=== PATIENT | female | born 1995 | race African-American/Black ===

== ENCOUNTER 2017-10-26 14:54 | Inpatient (IN) | payer MEDICAID ==
[2017-10-26] VITALS (19 sets, daily range): BP systolic 117–154; BP diastolic 51–87; PULSE 70–100; RESP 17–18; TEMP 98–98.2; O2SAT 99
[~2017-10-26 14:54] MED LIST: MACR100C2 PO; PREN29TA PO
[2017-10-26] MEDS ORDERED: LACTATED RINGER'S 1000 ML INJ 1,000 ML IV PRN (15:31)
[2017-10-26] MEDS ORDERED: LACTATED RINGER'S 1000 ML INJ 1,000 ML IV SCH (15:31)
[2017-10-26 15:36] LABS: BASOPHIL % 0.2 % (0.0-2.0); EOSINOPHIL # 0.1 TH/MM3 (0-0.4); EOSINOPHIL % 0.3 % (0.0-4.0); HEMATOCRIT 31.1 % (35.0-46.0); HEMOGLOBIN 9.5 GM/DL (11.6-15.3); LYMPH % 12.3 % (9.0-44.0); LYMPHOCYTE # 2.3 TH/MM3 (1.0-4.8); MEAN CELL VOLUME 61.2 FL (80.0-100.0); MEAN CORPUSCULAR HEMOGLOBIN 18.7 PG (27.0-34.0); MEAN CORPUSCULAR HGB CONC 30.5 % (32.0-36.0); MEAN PLATELET VOLUME 8.1 FL (7.0-11.0); MONO % 6.9 % (0.0-8.0); MONOCYTE # 1.3 TH/MM3 (0-0.9); NEUT % 80.3 % (16.0-70.0); PLATELET COUNT 255 TH/MM3 (150-450); RED BLOOD COUNT 5.08 MIL/MM3 (4.00-5.30); RED CELL DISTRIBUTION WIDTH 18.3 % (11.6-17.2); WHITE BLOOD COUNT 18.7 TH/MM3 (4.0-11.0)
[2017-10-26] MEDS ORDERED: LIDOCAINE HCL 1% 50 ML VIAL I-DERMAL PRN (15:45)
[2017-10-26] MEDS ORDERED: CITRIC ACID-SODIUM CITRATE LIQ 30 ML UDC PO SCH (15:45)
[2017-10-26] MEDS ORDERED: MINERAL OIL 10 ML VIAL TOPICAL PRN (15:45)
[2017-10-26] MEDS ORDERED: OXYTOCIN 30 UNITS-500ML PREMIX 500 ML IV ONE (15:45)
[2017-10-26] MEDS ORDERED: SODIUM CHLORID 0.9% 500 ML INJ 500 ML IV PRN (15:45)
[2017-10-26] MEDS ORDERED: LIDOCAINE HCL 1% 50 ML VIAL INFIL PRN (15:45)
[2017-10-26 15:49] LABS: AMORPHOUS SEDIMENT, URINE RARE; BACTERIA, URINE OCC /hpf; BILIRUBIN, URINE NEG (NEG); BLOOD, URINE MOD (NEG); GLUCOSE,URINE NEG (NEG); KETONE, URINE NEG (NEG); MUCUS URINE FEW /lpf (OCC); NITRITE,URINE NEG (NEG); PH, URINE 7.5 (5.0-8.5); SQUAMOUS EPITHELIAL CELL URINE 7 /hpf (0-5); URINE COLOR YELLOW (YELLW/STRAW); URINE LEUKOCYTE ESTERASE SMALL (NEG)
[2017-10-26] MEDS ORDERED: SODIUM CHLOR 0.9% 1000 ML INJ 1,000 ML IV PRN (15:51)
[2017-10-26] MEDS ORDERED: LACTATED RINGER'S 1000 ML INJ 1,000 ML IV ONE (15:56)
[2017-10-26] MEDS ORDERED: ACETAMINOPHEN 1000 MG/100 ML 0 ML IV ONE (15:57)
[2017-10-26] MEDS ORDERED: MORPHINE SULFATE PF 5 MG/10 ML VIAL ONE (15:57)
[2017-10-26] MEDS ORDERED: MEASLES, MUMPS, RUBELLA VACCINE 0.5 ML VIAL SQ ONE (16:00)
[2017-10-26] MEDS ORDERED: DIPHTH/TETANUS/ACEL PERTUSSIS (BOOSTER) 0.5 ML VIAL/PFS IM ONE (16:00)
[2017-10-26] MEDS ORDERED: OXYTOCIN 30 UNITS-500ML PREMIX 500 ML ONE (16:05)
[2017-10-26] MEDS: LACTATED RINGER'S 1000 ML INJ 1,000 ML IV SCH ×2 (16:26→21:32)
[2017-10-26] MEDS ORDERED: BENZOCAINE 20% TOPICAL SPRAY 60 ML CAN TOPICAL PRN (16:30)
[2017-10-26] MEDS ORDERED: ALUMINUM/MAGNESIUM/SIMETH 30 ML CUP PO PRN (16:30)
[2017-10-26] MEDS ORDERED: ONDANSETRON ODT 4 MG TAB PO PRN (16:30)
[2017-10-26] MEDS ORDERED: ACETAMINOPHEN 325 MG TAB PO PRN (16:30)
[2017-10-26] MEDS ORDERED: SODIUM CHLORIDE 0.9% FLUSH 10 ML FLUSH IV FLUSH PRN (16:30)
[2017-10-26] MEDS ORDERED: ZOLPIDEM TARTRATE 5 MG TAB PO PRN (16:30)
[2017-10-26] MEDS ORDERED: DOCUSATE SODIUM 50 MG/SENNA 8.6 MG TAB PO PRN (16:30)
[2017-10-26] MEDS ORDERED: WITCH HAZEL 50%/GLYCERIN 12.5% 40 PAD JAR TOPICAL PRN (16:30)
[2017-10-26] MEDS ORDERED: OXYTOCIN 30 UNITS-500ML PREMIX 500 ML IV SCH (16:30)
--- NOTE | 2017-10-26 16:30 | PD.OB.DELI ---
Weeks gestation: 40 Gest age assessed date: Oct 26, 2017 Gest age assessed time: 15:30 Pt started active labor?: Yes Active labor start date: Oct 26, 2017 Active labor start time: 10:00 Artificial rupture of membrane: No Artificial ROM date: Oct 26, 2017 Anesthesia: None Episiotomy: None Vaginal Delivery: Normal, Spontaneous Presentation: Occiput anterior Nuchal Cord: x1 (tight nuchal) Delayed cord clamping (45 sec): No Infant: Male Delivery date: Oct 26, 2017 Delivery time: 16:04 One Minute : 8 Five Minute : 9 Weight: 7 pounds 2 oz Placenta: Spontaneous delivery Laceration: No lacerations Estimated blood loss: 150cc Additional Information Patient presented to OB ED and noted to be jose with variable decellerations. Patient had NO prior care. dating was based on sure LMP of 01-18-2017, consistent with abdominal exam. She was moved to labor room and examined. Cervix was noted to be almost 9cm and appeared to have previously ruptured. Forebag was ruptured and IUPC inserted and amnioinfusion started. On my exam she was 8cm dilated and FSE applied. Persistent variable decellerations continued and decision was made to proceed to c section. In OR patient was positioned for spinal but complained of vaginal pressure. She was placed in dorsal lithotomy and on exam,was fully dilated with head on the perineum. We proceeded to spontaneous vaginal delivery. Tight nuchal cord and and slipped, with tear in cord. Cord clamped, and placenta delivered spontaneously. Perineum intact. EBL 150cc. Cecil Jennings MD Oct 26, 2017 16:30
--- NOTE | 2017-10-26 16:37 | HHI.HP ---
HPI Travel History International Travel<30 Days: No Contact w/Intl Traveler<30Days: No History of Present Illness HPI Ms. Ontiveros is a 21 year old who presents with labor. Patient states that she began having strong abdominal contractions this morning ; she felt that she was "dilating" last night but decided to seek care today due to strength of contractions. Patient does not report any other symptoms at this time such as headache, visual changes, shortness of breath, chest pain, abdominal pain, or dysuria. Patient does not report taking any medications, having any allergies, or having any past medical problems. Patient states that she did not obtain any care this or any ultrasounds. Patient states that her last 2 gestations were delivered vaginally at full-term 1 and 2 years ago. Patient does not report any tobacco use, alcohol use, or illicit drug use. Para: 2 : 3 History Past Medical History Medical History: Denies Significant Hx Obstetric History Obstetric History 002 Past Surgical History Surgical History: No Previous Surgery Family History Narrative Family History None reported Social History Alcohol Use: No Tobacco Use: No Substance Abuse: No Allergies-Medications (Allergen,Severity, Reaction): Coded Allergies: No Known Allergies (Unverified Allergy, Unknown, 10/26/17) Home Meds Active Scripts Vit-Iron Carbonyl ( Plus Iron 29-1 mg) 1 Tab Tab, 1 TAB PO DAILY for Nutritional Supplement, #30 TAB 0 Refills Prov:Carrie Batista 09/17/16 Nitrofurantoin Monohydrate Macrocrystals (Macrobid) 100 Mg Cap, 100 MG PO BID for Infection for 7 Days, CAP 0 Refills Prov:Carrie Batista 09/17/16 Review of Systems General / Constitutional: No: Fever, Chills Eyes: No: Diploplia, Blurred Vision HENT: No: Headaches Cardiovascular: No: Chest Pain or Discomfort Respiratory: No: Short of Breath Gastrointestinal: No: Nausea, Vomiting, Abdominal Pain Genitourinary: No: Urgency, Frequency Skin: No Rash, No Itching Physical Exam Vital Signs Date Time Temp Pulse Resp B/P (MAP) Pulse Ox O2 Delivery O2 Flow Rate FiO2 10/26/17 15:48 85 123/51 (75) 10/26/17 15:30 97 1/12/18 15:22 90 145/78 (100) Narrative GENERAL: in distress; labor SKIN: Warm and dry. HEAD: Normocephalic and atraumatic. EYES: No scleral icterus. No injection or drainage. ENT: No nasal drainage noted. Mucous membranes pink. Airway patent. CARDIOVASCULAR: Regular rate and rhythm without murmurs; normal perfusion RESPIRATORY: CTAB; normal rate ABDOMEN/GI: Gravid; seems near full term EXTREMITIES: No cyanosis or edema. NEUROLOGICAL: Awake and alert. Motor and sensory grossly within normal limits. Five out of 5 muscle strength in all muscle groups. Normal speech. GENITOURINARY: External Genitalia: intact and normal in appearance Cervix: Dilatation: 8 cm Effacement: 80% Station: 0 Presentation: vertex Membranes: Forebag present; prior rupture? Uterine Contractions: q3 min FHT's: Category: 2 Baseline: 110 Reactive: Y Variability: Mod Decels: Deep variable Caprini VTE Risk Assessment Caprini VTE Risk Assessment: No/Low Risk (score <= 1) Caprini Risk Assessment Model Point Value = 1 Point Value = 2 Point Value = 3 Point Value = 5 Age 41-60 Minor surgery BMI > 25 kg/m2 Swollen legs Varicose veins or History of unexplained or recurrent spontaneous Oral contraceptives or hormone replacement Sepsis (< 1 month) Serious lung disease, including pneumonia (< 1 month) Abnormal pulmonary function Acute myocardial infarction Congestive heart failure (< 1 month) History of inflammatory bowel disease Medical patient at bed rest Age 61-74 Arthroscopic surgery Major open surgery (> 45 min) Laparoscopic surgery (> 45 min) Malignancy Confined to bed (> 72 hours) Immobilizing plaster cast Central venous access Age >= 75 History of VTE Family history of VTE Factor V Leiden Prothrombin [id number] Lupus anticoagulant Anticardiolipin antibodies Elevated serum homocysteine Heparin-induced thrombocytopenia Other congenital or acquired thrombophilia Stroke (< 1 month) Elective arthroplasty Hip, pelvis, or leg fracture Acute spinal cord injury (< 1 month) Prophylaxis Regimen Total Risk Factor Score Risk Level Prophylaxis Regimen 0-1 Low Early ambulation 2 Moderate Order ONE of the following: *Sequential Compression Device (SCD) *Heparin 5000 units SQ BID 3-4 Higher Order ONE of the following medications: *Heparin 5000 units SQ TID *Enoxaparin/Lovenox 40 mg SQ daily (WT < 150 kg, CrCl > 30 mL/min) *Enoxaparin/Lovenox 30 mg SQ daily (WT < 150 kg, CrCl > 10-29 mL/min) *Enoxaparin/Lovenox 30 mg SQ BID (WT < 150 kg, CrCl > 30 mL/min) AND/OR *Sequential Compression Device (SCD) 5 or more Highest Order ONE of the following medications: *Heparin 5000 units SQ TID (Preferred with Epidurals) *Enoxaparin/Lovenox 40 mg SQ daily (WT < 150 kg, CrCl > 30 mL/min) *Enoxaparin/Lovenox 30 mg SQ daily (WT < 150 kg, CrCl > 10-29 mL/min) *Enoxaparin/Lovenox 30 mg SQ BID (WT < 150 kg, CrCl > 30 mL/min) AND *Sequential Compression Device (SCD) Data Data Vital Signs Reviewed: Yes Orders Orders Ob (2e) Additional Admit Info (10/26/17 15:12) Admit To Inpatient (10/26/17 ) Vital Signs (Adult) .Per protocol (10/26/17 15:23) Heart (10/26/17 15:23) Amnioinfusion (10/26/17 15:23) Urinary Catheter Management .ONCE (10/26/17 15:23) Complete Blood Count With Diff (10/26/17 15:) Hold Clot (10/26/17 15:) Abo/Rh Blood Type (10/26/17 15:23) Urinalysis - C+S If Indicated (10/26/17 15:23) Drug Screen, Random Urine (10/26/17 15:23) No Care Spec Serology (10/26/17 15:23) Resp Oxygen Non Rebreathe Mask (10/26/17 ) ^ Epidural / Intrathecal Infus (10/26/17 15:23) Specimen To Be Collected PRN (10/26/17 15:23) Specimen To Be Collected PRN (10/26/17 15:23) Amnioinfusion (10/26/17 15:31) Urinary Catheter Management .ONCE (10/26/17 15:31) Diet Npo (10/26/17 Dinner) Lactated Ringer's 1000 Ml Inj (Lr 1000 M (10/26/17 15:31) Lactated Ringer's 1000 Ml Inj (Lr 1000 M (10/26/17 15:31) Sodium Chlorid 0.9% 500 Ml Inj (Ns 500 M (10/26/17 15:45) Sodium Chlor 0.9% 1000 Ml Inj (Ns 1000 M (10/26/17 15:51) Lidocaine 1% Inj (50 Ml) (Xylocaine 1% I (10/26/17 15:45) Citric Acid-Sodium Citrate Liq (Bicitra (10/26/17 15:45) Fentanyl Inj (Fentanyl Inj) (10/26/17 15:45) Fentanyl Inj (Fentanyl Inj) (10/26/17 15:45) Resp Oxygen Non Rebreathe Mask (10/26/17 ) ^ Epidural / Intrathecal Infus (10/26/17 15:31) Oxytocin 30 Units-500ml Premix (Pitocin (10/26/17 15:45) Lidocaine 1% Inj (50 Ml) (Xylocaine 1% I (10/26/17 15:45) Light Mineral Oil (Muri-Lube Oil) (10/26/17 15:45) Urine Culture (10/26/17 15:00) Heart (10/26/17 15:56) Urinary Catheter Management IRINEO.Q8H (10/26/17 15:56) ^ Preps (10/26/17 15:56) Scd / John / Foot Pump IRINEO.QSHIFT (10/26/17 15:56) ^ Ultrasound For Locatio (10/26/17 15:56) Lactated Ringer's 1000 Ml Inj (Lr 1000 M (10/26/17 15:56) Lactated Ringer's 1000 Ml Inj (Lr 1000 M (10/26/17 16:26) Cefazolin 2 Gm Premix (Ancef 2 Gm Premix (10/26/17 17:00) Morphine Pf Inj (Duramorph Pf 0.5 Mg/Ml (10/26/17 15:57) Acetaminophen 1000 Mg/100 Ml (Ofirmev 10 (10/26/17 15:57) Oxytocin 30 Units-500ml Premix (Pitocin (10/26/17 16:05) Labs Laboratory Tests Test 10/26/17 15:00 10/26/17 15:10 Urine Color YELLOW Urine Turbidity HAZY Urine pH 7.5 Urine Specific [place] 1.016 Urine Protein 30 Urine Glucose (UA) NEG Urine Ketones NEG Urine Occult Blood MOD Urine Nitrite NEG Urine Bilirubin NEG Urine Urobilinogen LESS THAN 2.0 Urine Leukocyte Esterase SMALL Urine RBC 32 Urine WBC 22 Urine Squamous Epithelial Cells 7 Urine Amorphous Sediment RARE Urine Bacteria OCC Urine Mucus FEW Microscopic Urinalysis Comment CULTURE INDICATED Urine Opiates Screen NEG Urine Barbiturates Screen NEG Urine Amphetamines Screen NEG Urine Benzodiazepines Screen NEG Urine Cocaine Screen NEG Urine Cannabinoids Screen NEG White Blood Count 18.7 Red Blood Count 5.08 Hemoglobin 9.5 Hematocrit 31.1 Mean Corpuscular Volume 61.2 Mean Corpuscular Hemoglobin 18.7 Mean Corpuscular Hemoglobin Concent 30.5 Red Cell Distribution Width 18.3 Platelet Count 255 Mean Platelet Volume 8.1 Neutrophils (%) (Auto) 80.3 Lymphocytes (%) (Auto) 12.3 Monocytes (%) (Auto) 6.9 Eosinophils (%) (Auto) 0.3 Basophils (%) (Auto) 0.2 Neutrophils # (Auto) 15.0 Lymphocytes # (Auto) 2.3 Monocytes # (Auto) 1.3 Eosinophils # (Auto) 0.1 Basophils # (Auto) 0.0 CBC Comment DIFF FINAL Differential Comment Date/Time Source Procedure Growth Status 10/26/17 15:00 Urine Clean Catch Urine Culture Pending Received Assessment/Plan Problem List: (1) Antepartum variable deceleration ICD Codes: O36.8390 - Maternal care for abnormalities of the heart rate or rhythm, unspecified trimester, not applicable or unspecified Status: Acute (2) No care in current ICD Codes: O09.30 - Supervision of with insufficient care, unspecified trimester Qualifiers: Qualified Codes: O09.33 - Supervision of with insufficient care, third trimester (3) Intrauterine ICD Codes: Z33.1 - state, incidental Status: Acute Assessment and Plan 21 yo in active labor; unknown GA Assessment/Plan: -Late variable decels, regular contractions, cervix 7-8cm dilated, vertex presentation -IV bolus started by nursing staff -O2 started -Nursing staff assisted with position changes -Amnioinfusion started -Unknown GA/no care -Will obtain GBS -Will obtain labs, UDS Harsha Barnes MD, R3 Oct 26, 2017 16:37
--- NOTE | 2017-10-26 16:44 | PD ---
HPI Chief Complaint labor Date Seen: Oct 26, 2017 Travel History International Travel<30 Days: No Contact w/Intl Traveler<30Days: No History of Present Illness HPI Ms. Ontiveros is a 21 year old who presents with labor. Patient states that she began having strong abdominal contractions this morning ; she felt that she was "dilating" last night but decided to seek care today due to strength of contractions. Patient does not report any other symptoms at this time such as headache, visual changes, shortness of breath, chest pain, abdominal pain, or dysuria. Patient does not report taking any medications, having any allergies, or having any past medical problems. Patient states that she did not obtain any care this or any ultrasounds. Patient states that her last 2 gestations were delivered vaginally at full-term 1 and 2 years ago. Patient does not report any tobacco use, alcohol use, or illicit drug use. Para: 2 : 3 History Past Medical History Medical History: Denies Significant Hx Obstetric History Obstetric History Past Surgical History Surgical History: No Previous Surgery Family History Family History: Negative Social History Alcohol Use: No Tobacco Use: No Substance Abuse: No Allergies-Medications (Allergen,Severity, Reaction): Coded Allergies: No Known Allergies (Unverified Allergy, Unknown, 10/26/17) Home Meds Active Scripts Vit-Iron Carbonyl ( Plus Iron 29-1 mg) 1 Tab Tab, 1 TAB PO DAILY for Nutritional Supplement, #30 TAB 0 Refills Prov:Carrie Batista 09/17/16 Nitrofurantoin Monohydrate Macrocrystals (Macrobid) 100 Mg Cap, 100 MG PO BID for Infection for 7 Days, CAP 0 Refills Prov:Carrie Batista 09/17/16 Review of Systems General / Constitutional: No: Fever, Chills Eyes: No: Blurred Vision HENT: No: Headaches Cardiovascular: No: Chest Pain or Discomfort Respiratory: No: Short of Breath Gastrointestinal: Abdominal Pain, No: Nausea, Vomiting Genitourinary: No: Urgency, Dysuria Skin: No Rash, No Itching Physical Exam Vital Signs Date Time Temp Pulse Resp B/P (MAP) Pulse Ox O2 Delivery O2 Flow Rate FiO2 10/26/17 16:37 18 10/26/17 16:35 84 154/87 (109) 10/26/17 15:48 85 123/51 (75) 10/26/17 15:30 97 10/26/17 15:22 90 145/78 (100) Narrative GENERAL: in distress; labor SKIN: Warm and dry. HEAD: Normocephalic and atraumatic. EYES: No scleral icterus. No injection or drainage. ENT: No nasal drainage noted. Mucous membranes pink. Airway patent. CARDIOVASCULAR: Regular rate and rhythm without murmurs; normal perfusion RESPIRATORY: CTAB; normal rate ABDOMEN/GI: Gravid; seems near full term EXTREMITIES: No cyanosis or edema. NEUROLOGICAL: Awake and alert. Motor and sensory grossly within normal limits. Five out of 5 muscle strength in all muscle groups. Normal speech. GENITOURINARY: External Genitalia: intact and normal in appearance Cervix: Dilatation: 8 cm Effacement: 80% Station: 0 Presentation: vertex Membranes: Forebag present; prior rupture? Uterine Contractions: q3 min FHT's: Category: 2 Baseline: 110 Reactive: Y Variability: Mod Decels: Deep variable Data Data Vital Signs Reviewed: Yes Orders Orders Ob (2e) Additional Admit Info (10/26/17 15:12) Admit To Inpatient (10/26/17 ) Vital Signs (Adult) .Per protocol (10/26/17 15:23) Heart (10/26/17 15:23) Amnioinfusion (10/26/17 15:23) Urinary Catheter Management .ONCE (10/26/17 15:23) Complete Blood Count With Diff (10/26/17 15:23) Hold Clot (10/26/17 15:23) Abo/Rh Blood Type (10/26/17 15:23) Urinalysis - C+S If Indicated (10/26/17 15:23) Drug Screen, Random Urine (10/26/17 15:23) No Care Spec Serology (10/26/17 15:23) Resp Oxygen Non Rebreathe Mask (10/26/17 ) ^ Epidural / Intrathecal Infus (10/26/17 15:23) Specimen To Be Collected PRN (10/26/17 15:23) Specimen To Be Collected PRN (10/26/17 15:23) Amnioinfusion (10/26/17 15:31) Urinary Catheter Management .ONCE (10/26/17 15:31) Lactated Ringer's 1000 Ml Inj (Lr 1000 M (10/26/17 15:31) Lactated Ringer's 1000 Ml Inj (Lr 1000 M (10/26/17 15:31) Sodium Chlorid 0.9% 500 Ml Inj (Ns 500 M (10/26/17 15:45) Sodium Chlor 0.9% 1000 Ml Inj (Ns 1000 M (10/26/17 15:51) Lidocaine 1% Inj (50 Ml) (Xylocaine 1% I (10/26/17 15:45) Citric Acid-Sodium Citrate Liq (Bicitra (10/26/17 15:45) Fentanyl Inj (Fentanyl Inj) (10/26/17 15:45) Fentanyl Inj (Fentanyl Inj) (10/26/17 15:45) Resp Oxygen Non Rebreathe Mask (10/26/17 ) ^ Epidural / Intrathecal Infus (10/26/17 15:31) Oxytocin 30 Units-500ml Premix (Pitocin (10/26/17 15:45) Lidocaine 1% Inj (50 Ml) (Xylocaine 1% I (10/26/17 15:45) Light Mineral Oil (Muri-Lube Oil) (10/26/17 15:45) Urine Culture (10/26/17 15:00) Heart (10/26/17 15:56) Urinary Catheter Management IRINEO.Q8H (10/26/17 15:56) ^ Preps (10/26/17 15:56) Scd / John / Foot Pump IRINEO.QSHIFT (10/26/17 15:56) ^ Ultrasound For Locatio (10/26/17 15:56) Lactated Ringer's 1000 Ml Inj (Lr 1000 M (10/26/17 15:56) Lactated Ringer's 1000 Ml Inj (Lr 1000 M (10/26/17 16:26) Cefazolin 2 Gm Premix (Ancef 2 Gm Premix (10/26/17 17:00) Morphine Pf Inj (Duramorph Pf 0.5 Mg/Ml (10/26/17 15:57) Acetaminophen 1000 Mg/100 Ml (Ofirmev 10 (10/26/17 15:57) Oxytocin 30 Units-500ml Premix (Pitocin (10/26/17 16:05) Vital Signs (Adult) .QSHIFT (10/26/17 16:30) Activity Oob Ad Ana (10/26/17 16:30) Ice / Cold Pack PRN (10/26/17 16:30) Discontinue Iv (10/26/17 16:30) Sitz Bath PRN (10/26/17 16:30) ^ Massage (10/26/17 16:30) ^ Rhogam (10/26/17 16:30) Urinary Catheter Management .PRN (10/26/17 16:30) Diet Regular Basic (10/26/17 Dinner) Sodium Chloride 0.9% Flush (Ns Flush) (10/26/17 21:00) Sodium Chloride 0.9% Flush (Ns Flush) (10/26/17 16:30) Oxytocin 30 Units-500ml Premix (Pitocin (10/26/17 16:30) Acetaminophen (Tylenol) (10/26/17 16:30) Ibuprofen (Motrin) (10/26/17 16:30) Benzocaine 20% Top Spr (Americaine 20% T (10/26/17 16:30) Witch Shirley-Glycerin Pad (Tucks Pads) (10/26/17 16:30) Docusate Sodium-Senna (Julia-Colace) (10/26/17 16:30) Zolpidem (Ambien) (10/26/17 16:30) Fnmvyka-Ppbow-Ueqlssj Inj (M-M-R Ii Inj) (10/26/17 16:00) Uovq-Iwq-Agmetj (Booster) Inj (Boostrix (10/26/17 16:00) Al-Mag Hy-Si 40-40-4 Mg/Ml Liq (Mag-Al P (10/26/17 16:30) Ondansetron Odt (Zofran Odt) (10/26/17 16:30) Rubella Immune Status (10/26/17 16:32) Hepatitis Profile (10/26/17 16:32) Rapid Plasma Regin (Rpr) W Ttr (10/26/17 16:32) Labs Laboratory Tests Test 10/26/17 15:00 10/26/17 15:10 Urine Color YELLOW Urine Turbidity HAZY Urine pH 7.5 Urine Specific [place] 1.016 Urine Protein 30 Urine Glucose (UA) NEG Urine Ketones NEG Urine Occult Blood MOD Urine Nitrite NEG Urine Bilirubin NEG Urine Urobilinogen LESS THAN 2.0 Urine Leukocyte Esterase SMALL Urine RBC 32 Urine WBC 22 Urine Squamous Epithelial Cells 7 Urine Amorphous Sediment RARE Urine Bacteria OCC Urine Mucus FEW Microscopic Urinalysis Comment CULTURE INDICATED Urine Opiates Screen NEG Urine Barbiturates Screen NEG Urine Amphetamines Screen NEG Urine Benzodiazepines Screen NEG Urine Cocaine Screen NEG Urine Cannabinoids Screen NEG White Blood Count 18.7 Red Blood Count 5.08 Hemoglobin 9.5 Hematocrit 31.1 Mean Corpuscular Volume 61.2 Mean Corpuscular Hemoglobin 18.7 Mean Corpuscular Hemoglobin Concent 30.5 Red Cell Distribution Width 18.3 Platelet Count 255 Mean Platelet Volume 8.1 Neutrophils (%) (Auto) 80.3 Lymphocytes (%) (Auto) 12.3 Monocytes (%) (Auto) 6.9 Eosinophils (%) (Auto) 0.3 Basophils (%) (Auto) 0.2 Neutrophils # (Auto) 15.0 Lymphocytes # (Auto) 2.3 Monocytes # (Auto) 1.3 Eosinophils # (Auto) 0.1 Basophils # (Auto) 0.0 CBC Comment DIFF FINAL Differential Comment Date/Time Source Procedure Growth Status 10/26/17 15:00 Urine Clean Catch Urine Culture Pending Received MDM Medical Record Reviewed: Yes Narrative Course / MDM 21 yo in active labor; unknown GA Assessment/Plan: -Will admit for labor -Late variable decels, regular contractions, cervix 7-8cm dilated, vertex presentation -IV bolus started by nursing staff -O2 started -Nursing staff assisted with position changes -Amnioinfusion started -Unknown GA/no care -Will obtain GBS -Will obtain labs, UDS Diagnosis Diagnosis: Primary Impression: Antepartum variable deceleration Harsha Barnes MD, R3 Oct 26, 2017 16:44
[2017-10-26] MEDS ORDERED: ceFAZolin 2 GM PREMIX 50 ML IV SCH (17:00)
[2017-10-26] MEDS: IBUPROFEN 800 MG TAB PO PRN (17:23)
[2017-10-26] MEDS ORDERED: SODIUM CHLORIDE 0.9% FLUSH 10 ML FLUSH IV FLUSH SCH (21:00)
[2017-10-27] MEDS: IBUPROFEN 800 MG TAB PO PRN (01:48)
[2017-10-27 08:00] VITALS: BP 134/65; PULSE 78; RESP 18; TEMP 97.9; O2SAT 99
--- NOTE | 2017-10-27 08:57 | HHI.OB ---
Subjective Post Day: 1 Remarks Pt seen and examined this morning. day # 1 AFVSS overnight. Decreased lochia. Denies dysuria. No breast tenderness. She is feeding the baby via bottle. Appetite good. No nausea or vomiting. Patient has not yet had a bowel movement or endorses bowel gas. Ambulating well. Denies calf pain or shortness of breath. Otherwise, she is doing well this morning and has no other concerns. Objective Vitals/I&O Vital Signs Date Time Temp Pulse Resp B/P (MAP) Pulse Ox O2 Delivery O2 Flow Rate FiO2 10/26/17 20:35 98.0 82 18 130/60 (83) 10/26/17 18:45 17 10/26/17 18:30 98.2 85 18 129/60 (83) 99 10/26/17 18:15 18 10/26/17 18:00 100 139/87 (104) 10/26/17 18:00 17 10/26/17 17:46 74 117/84 (95) 10/26/17 17:45 17 10/26/17 17:31 72 146/87 (106) 10/26/17 17:17 73 145/76 (99) 10/26/17 17:16 74 140/83 (102) 10/26/17 17:10 18 10/26/17 17:00 98.0 10/26/17 17:00 17 10/26/17 17:00 70 150/87 (108) 10/26/17 16:46 77 137/86 (103) 10/26/17 16:44 79 149/83 (105) 10/26/17 16:37 18 10/26/17 16:35 84 154/87 (109) 10/26/17 15:48 85 123/51 (75) 10/26/17 15:30 97 10/26/17 15:22 90 145/78 (100) Objective Remarks GENERAL: Well-nourished, well-developed patient. CARDIOVASCULAR: Regular rate and rhythm without murmurs, gallops, or rubs. RESPIRATORY: Breath sounds equal bilaterally. No accessory muscle use. ABDOMEN/GI: Abdomen soft, non-tender. Fundus: Firm, non-tender at umbilicus. GENITOURINARY: Light to moderate bleeding. EXTREMITIES: No cyanosis or edema, non-tender, without signs of DVT. Medications and IVs Current Medications Medications (Trade) Dose Ordered Sig/Usman Route Start Time Stop Time Status Last Admin (Xylocaine 1% Inj (50 ml)) 0.1 ml UNSCH X1 PRN I-DERMAL 10/26/17 15:45 10/29/17 15:44 (Bicitra Liq) 30 ml GLASS MECHANIC PO 10/26/17 15:45 10/30/17 15:44 (Xylocaine 1% Inj (50 ml)) 10 ml UNSCH X1 PRN INFIL 10/26/17 15:45 10/28/17 15:44 (Muri-Lube Oil) 10 ml UNSCH PRN TOPICAL 10/26/17 15:45 Lactated Ringer's 1,000 ml @ 150 mls/hr Q6H40M IV 10/26/17 16:26 10/26/17 21:32 Cefazolin Sodium/ Dextrose 50 ml @ 100 mls/hr GLASS MECHANIC IV 10/26/17 17:00 10/30/17 16:59 (NS Flush) 2 ml BID IV FLUSH 10/26/17 21:00 10/26/17 21:31 (NS Flush) 2 ml UNSCH PRN IV FLUSH 10/26/17 16:30 (Tylenol) 650 mg Q4H PRN PO 10/26/17 16:30 (Motrin) 800 mg Q8H PRN PO 10/26/17 16:30 10/27/17 01:48 (Americaine 20% Top Spr) 1 spray Q4H PRN TOPICAL 10/26/17 16:30 10/26/17 21:36 (Tucks Pads) 1 applic QID PRN TOPICAL 10/26/17 16:30 10/26/17 21:36 (Julia-Colace) 2 tab Q12H PRN PO 10/26/17 16:30 (Ambien) 5 mg HS PRN PO 10/26/17 16:30 (Mag-Al Plus Susp Liq) 15 ml Q8H PRN PO 10/26/17 16:30 (Zofran Odt) 4 mg Q6H PRN PO 10/26/17 16:30 Assessment/Plan Problem List: (1) Antepartum variable deceleration ICD Codes: O36.8390 - Maternal care for abnormalities of the heart rate or rhythm, unspecified trimester, not applicable or unspecified Status: Acute (2) No care in current ICD Codes: O09.30 - Supervision of with insufficient care, unspecified trimester Status: Acute Qualifiers: Qualified Codes: O09.33 - Supervision of with insufficient care, third trimester (3) Intrauterine ICD Codes: Z33.1 - state, incidental Status: Acute (4) (spontaneous vaginal delivery) ICD Codes: O80 - Encounter for full-term uncomplicated delivery Assessment and Plan 21 y/o female who is day # 1 s/p . -Continue routine care. -F/U urine culture, defer treatment at this time as patient is without symptoms. -Monitor for bowel activity. -Motrin PRN pain. -Encouraged OOB. Advised pelvic rest for 6 wks. -Re: ctrl, she would like to contemplate her options. -Anticipate discharge tomorrow with baby. -Case management consult placed as patient did not have any care. johanna Jennings MD Discharge Planning Likely tomorrow with baby Jesse Sheldon MD R2 Oct 27, 2017 08:57
[2017-10-27 13:00] LABS: HEPATITIS A AB IGM NEGATIVE (NEGATIVE); HEPATITIS B CORE AB IGM NEGATIVE (NEGATIVE); HEPATITIS B SURFACE ANTIGEN NEGATIVE (NEGATIVE); HEPATITIS C AB IgG NEGATIVE (NEGATIVE)
[2017-10-27 20:00] VITALS: BP 108/65; PULSE 69; RESP 18; TEMP 97.7; O2SAT 100
[2017-10-28] MEDS: IBUPROFEN 800 MG TAB PO PRN (00:21)
[2017-10-28] MEDS ORDERED: IBUP1TAB7 PO (07:38)
--- NOTE | 2017-10-28 07:38 | HHI.DCPOC ---
Discharge Care Plan Report Symptoms to Your Doctor -Temperature above 100.5 degrees -Redness, of incision or excessive or foul smelling drainage -Unusual pain or calf pain -Increased vaginal bleeding -Painful or difficulty urinating -Feelings of extreme sadness or anxiety after 2 weeks Goals to Promote Your Health * To prevent worsening of your condition and complications * To maintain your health at the optimal level Directions to Meet Your Goals Take your medications as prescribed Follow your dietary instruction Follow activity as directed Ensure plenty of rest for recovery Drink fluids for hydration Keep your appointments as scheduled Take your immunizations and boosters as scheduled If your symptoms worsen call your PCP, if no PCP go to Urgent Care Center or Emergency Room Smoking is Dangerous to Your Health. Avoid second hand smoke Call the 24-hour crisis hotline for domestic abuse at Sharon Donald MD Oct 28, 2017 07:38
--- NOTE | 2017-10-28 08:25 | HHI.OB ---
Subjective Post Day: 2 Remarks Pt seen and examined this morning. day # 2. AFVSS overnight. Decreased lochia. Denies dysuria. No breast tenderness. She is feeding the baby via formula. Appetite good. No nausea or vomiting. Ambulating well. Denies calf pain or shortness of breath. Otherwise, she is doing well this morning and has no other concerns. Objective Vitals/I&O Vital Signs Date Time Temp Pulse Resp B/P (MAP) Pulse Ox O2 Delivery O2 Flow Rate FiO2 10/27/17 20:00 97.7 69 18 108/65 (79) 100 Objective Remarks GENERAL: Well-nourished, well-developed patient. CARDIOVASCULAR: Regular rate and rhythm without murmurs, gallops, or rubs. RESPIRATORY: Breath sounds equal bilaterally. No accessory muscle use. ABDOMEN/GI: Abdomen soft, non-tender. Fundus: Firm, non-tender at umbilicus. GENITOURINARY: Light to moderate bleeding. EXTREMITIES: No cyanosis or edema, non-tender, without signs of DVT. Medications and IVs Current Medications Medications (Trade) Dose Ordered Sig/Usman Route Start Time Stop Time Status Last Admin (Xylocaine 1% Inj (50 ml)) 0.1 ml UNSCH X1 PRN I-DERMAL 10/26/17 15:45 10/29/17 15:44 (Bicitra Liq) 30 ml TEST GRADER PO 10/26/17 15:45 10/30/17 15:44 (Xylocaine 1% Inj (50 ml)) 10 ml UNSCH X1 PRN INFIL 10/26/17 15:45 10/28/17 15:44 (Muri-Lube Oil) 10 ml UNSCH PRN TOPICAL 10/26/17 15:45 Lactated Ringer's 1,000 ml @ 150 mls/hr Q6H40M IV 10/26/17 16:26 10/26/17 21:32 Cefazolin Sodium/ Dextrose 50 ml @ 100 mls/hr TEST GRADER IV 10/26/17 17:00 10/30/17 16:59 (NS Flush) 2 ml BID IV FLUSH 10/26/17 21:00 10/26/17 21:31 (NS Flush) 2 ml UNSCH PRN IV FLUSH 10/26/17 16:30 (Tylenol) 650 mg Q4H PRN PO 10/26/17 16:30 (Motrin) 800 mg Q8H PRN PO 10/26/17 16:30 10/28/17 00:21 (Americaine 20% Top Spr) 1 spray Q4H PRN TOPICAL 10/26/17 16:30 10/26/17 21:36 (Tucks Pads) 1 applic QID PRN TOPICAL 10/26/17 16:30 10/26/17 21:36 (Julia-Colace) 2 tab Q12H PRN PO 10/26/17 16:30 (Ambien) 5 mg HS PRN PO 10/26/17 16:30 (Mag-Al Plus Susp Liq) 15 ml Q8H PRN PO 10/26/17 16:30 (Zofran Odt) 4 mg Q6H PRN PO 10/26/17 16:30 Assessment/Plan Problem List: (1) Antepartum variable deceleration ICD Codes: O36.8390 - Maternal care for abnormalities of the heart rate or rhythm, unspecified trimester, not applicable or unspecified Status: Acute (2) No care in current ICD Codes: O09.30 - Supervision of with insufficient care, unspecified trimester Status: Acute Qualifiers: Qualified Codes: O09.33 - Supervision of with insufficient care, third trimester (3) Intrauterine ICD Codes: Z33.1 - state, incidental Status: Acute (4) (spontaneous vaginal delivery) ICD Codes: O80 - Encounter for full-term uncomplicated delivery Assessment and Plan 21 y/o female who is day # 2 s/p . -Continue routine care. -F/U urine culture:negative for infection. -Monitor for bowel activity. -Motrin PRN pain. -Encouraged OOB. Advised pelvic rest for 6 wks. -Re: ctrl, she will defer for follow-up. -Anticipate discharge today with baby. -Case management consult placed as patient did not have any care. JULITO Lozano MD Discharge Planning Likely tomorrow with baby Sharon Donald MD Oct 28, 2017 08:24
== END 2017-10-28 12:27 | disposition home or self-care (01) | DRG 775 ==
LOC: HOBED 14:54 → H2EA 15:21 → H1EA 18:21
PROVIDERS: ADMIT Obstetrics & Gynecology; ATTEND Obstetrics & Gynecology
DX: O76 Abnormality in fetal heart rate and rhythm complicating labor and delivery (principal); Z37.0 Single live birth; O69.1XX0 Labor and delivery complicated by cord around neck, with compression, not applicable or unspecified; Z3A.40 40 weeks gestation of pregnancy
CPT/HCPCS: 59025; 80074; 80307; 81001; 85025; 86592; 86703; 86762; 86900; 86901; 87086; 90715; J0131; J2274; J2590; J7120